=== PATIENT | male | born 1975 | race Caucasian/White ===

== ENCOUNTER 2020-05-17 09:41 | Emergency (ER) | payer OTHER, SELFPAY ==
--- NOTE | ~2020-05-17 | XR_ITS ---
EXAMINATION: XR ankle LT min 3V DATE: 05/17/2020 10:26 INDICATION: Left ankle pain TECHNIQUE: Anteroposterior, lateral, mortise, and additional oblique view of the ankle were obtained. COMPARISON: None. FINDINGS: There is mild ankle soft tissue swelling. No fracture, dislocation, or subluxation is ident ified. IMPRESSION: 1. Mild ankle soft tissue swelling without acute osseous abnormality. Reviewed, dictated and finalized at location A. E [facility]ISTORIAN
[2020-05-17 10:00] VITALS: BP 134/80; PULSE 81; RESP 18; TEMP 36.7; O2SAT 98
--- NOTE | 2020-05-17 10:11 | ED.GENADULT ---
HPI - General Adult General Chief complaint: Extremity Injury, Lower Stated complaint: Left ankle/foot injury Time Seen by Provider: 05/17/20 10:11 Source: patient Mode of arrival: ambulatory Limitations: no limitations History of Present Illness HPI narrative: 45-year-old male patient presents to the [facility] with complaints of left ankle pain. Patient states he stepped down off of a truck yesterday onto some uneven concrete and rolled his left ankle. Patient states he has been icing it using a ankle brace and taking ibuprofen for his pain. Denies any numbness or tingling to the toes. Related Data Home Medications Medication Instructions Recorded Confirmed albuterol sulfate 2 puff INHALATION QID PRN 05/17/20 05/17/20 Allergies Allergy/AdvReac Type Severity Reaction Status Date / Time No Known Allergies Allergy Verified 05/17/20 10:12 Review of Systems Review of Systems: Narrative: CONSTITUTIONAL: Denies fever, chills, or sweats. EYES: Denies visual changes, redness, or discharge. ENT: Denies rhinorrhea, congestion, sore throat, or otalgia. CARDIOVASCULAR: Denies chest pain, palpitations, or edema. RESPIRATORY: Denies cough or dyspnea. GASTROINTESTINAL: Denies abdominal pain, nausea, vomiting, or diarrhea. GENITOURINARY: Denies dysuria or hematuria. SKIN: Denies rash or itching. MUSCULOSKELETAL: Denies back pain, joint pain, or myalgia. Positive left ankle pain NEUROLOGIC: Denies headache, numbness, or weakness. PSYCHIATRIC: Denies anxiety or depression. [facility] Past Medical History Medical History (Updated 05/17/20 @ 10:37 by JEMMA Michelle) Asthma Surgical History Surgical History (Updated 05/17/20 @ 10:12 by JEMMA Michelle) H/O inguinal hernia repair Social History Social History (Updated 05/17/20 @ 10:12 by JEMMA Michelle) Smoking status: Current every day smoker Comments At the time of my signature I agree with nursing past medical history, surgical, social, and family history. There is no relevant family history pertinent to the presenting complaint. Exam Narrative: Exam Narrative: GENERAL: Well-appearing, well-nourished, and in no acute distress. HEAD: Normocephalic, atraumatic. EYES: PERRLA and EOMI. ENT: Nares clear, no rhinorrhea or epistaxis. Mucous membranes moist. NECK: Supple. No lymphadenopathy CHEST: Clear to auscultation. No respiratory distress. HEART: Regular rate and rhythm. No murmur heard. Normal peripheral pulses. ABDOMEN: Soft, nontender, nondistended, normal active bowel sounds. EXTREMITIES: Patient is able to bear weight and ambulate but has increased pain to the left ankle. The L ankle is without obvious asymmetry or deformity when compared to the R ankle. Patient can flex/but has pain with extend, no pain with invert/cl. No obvious surface trauma, ecchymosis. No body tenderness and soft tissue swelling over the lateral malleolus. Pain to the anterior talofibular ligament, no pain with posterior talofibular ligament, calcaneofibular ligament nontender and without swelling. No tenderness or deformity of the midfootor over the proximal fifth metatarsal. Good DP and posterior tibial pulses and sensation to light touch normal. Talar tilt test is negative for ligament laxity to valgus or vargus stress. Negative anterior draw. Peroneal nerve is intact with strong eversion and plantar flexion. SKIN: Warm, dry, no rash. NEURO: No focal deficits. Alert and oriented x3. Course Reevaluation(s) Reevaluation #1: Reevaluated patient after his x-ray had resulted. Notified him that the x-ray is negative for any acute fractures at this time. Discussed with him that this is most likely an ankle sprain and that he should continue using the ankle brace that he has been using along with icing it and elevating it and I will give him some naproxen to help with the pain. Patient verbalized understanding of this. A copy of the x-ray results were provided to the patient today.
== END 2020-05-17 10:40 | disposition home or self-care (01) ==
PROVIDERS: Emergency Provider Nurse Practitioner Family; PCP Internal Medicine
DX: S93.402A Sprain of unspecified ligament of left ankle, initial encounter (principal); X50.9XXA Other and unspecified overexertion or strenuous movements or postures, initial encounter; F17.200 Nicotine dependence, unspecified, uncomplicated; J45.909 Unspecified asthma, uncomplicated
CPT/HCPCS: 73610; 99203; G0463

== ENCOUNTER 2020-06-25 13:35 | Emergency (ER) | payer OTHER, SELFPAY ==
--- NOTE | ~2020-06-25 | XR_ITS ---
EXAMINATION: XR chest 2V EXAM DATE: 06/25/2020 14:35 INDICATION: slipped. Hit bumper of truck 06/23/20. Anterior chest. TECHNIQUE: Frontal and lateral projections of the chest obtained and reviewed. There is no prior laurie dy for comparison. FINDINGS: The lungs are clear. There are no pleural effusions. The cardiomediastinal silhouette is within normal limits. There is no pneumothorax suspected. The bones and soft tissues are unremarkab le. IMPRESSION: No acute cardiopulmonary findings. Reviewed, dictated and finalized at location B. [facility] [employer]
[2020-06-25 13:50] VITALS: BP 140/73; PULSE 73; RESP 18; TEMP 36.7; O2SAT 98
--- NOTE | 2020-06-25 14:01 | ED.GENADULT ---
HPI - General Adult General Chief complaint: Wound/Laceration Stated complaint: chest pain from fall Time Seen by Provider: 06/25/20 14:15 Source: patient and RN notes reviewed Mode of arrival: ambulatory Limitations: no limitations History of Present Illness HPI narrative: 45-year-old male presents with complaint of left upper chest pain status post fall for the past 2 days. Tomy reports standing on bumper of truck (which was wet) lost footing and fell forward hitting chest on bed of truck causing pain to chest. Increasing pain over the past 24 hours. Heat and Ibuprofen (3 doses) last on 06/24/20 with little relief. Denies difficulty breathing or cough. Denies hitting head, loss consciousness, seizure activity, dizziness, or syncopal episodes. No deformity. Exacerbating factors consist of taking a deep breath and certain movements. Relieving factor consist of resting. Denies fever or chills. No cardiac chest pain, wheezing, or shortness of breath. Denies abdominal pain, nausea, and vomiting. Tolerating intake well. Remains active. The patient reports he have not been diagnosed with COVID-19. The patient reports he is not waiting for the results of a COVID-19 lab test. The patient reports he do not have chills, weakness, or fatigue. The patient reports he do not have a new or worsening cough or shortness of breath. The patient reports he do not have any rhinorrhea, congestion, loss of taste or smell, sore throat, and diarrhea. Denies recent traveling. Denies concerns for COVID-19 or exposures been home with limited outdoor exposure except for essential household needs, work, and return home. At this time, patient is not suspected of having COVID-19. Some parts of this dictation were generated by voice recognition software and may contain typographical and/or grammatical inaccuracies. Related Data Home Medications Medication Instructions Recorded Confirmed albuterol sulfate 2 puff INHALATION QID PRN 05/17/20 06/25/20 Allergies Allergy/AdvReac Type Severity Reaction Status Date / Time No Known Allergies Allergy Verified 06/25/20 14:00 Review of Systems Review of Systems: Narrative: CONSTITUTIONAL: Denies fever, chills, sweats. EYES: Denies visual changes, redness, discharge. ENT: Denies rhinorrhea, congestion, sore throat, otalgia. CARDIOVASCULAR: Denies chest pain, palpitations, edema. RESPIRATORY: Denies dyspnea, wheezing, cough. GASTROINTESTINAL: Denies abdominal pain, nausea, vomiting, diarrhea. GENITOURINARY: Denies dysuria, hematuria, abnormal discharge. SKIN: Denies rash or itching. MUSCULOSKELETAL: Denies acute back pain, joint pain, or myalgia. Complains of acute left upper chest wall tenderness. NEUROLOGIC: Denies numbness or focal weakness. PSYCHIATRIC: Denies anxiety or depression. All systems reviewed & are unremarkable except as noted in HPI and below. [facility] Past Medical History Medical History (Updated 06/26/20 @ 00:00 by Nikko Fortune) Asthma Hydrocele Surgical History Surgical History (Updated 06/25/20 @ 14:25 by JEMMA Lugo) H/O inguinal hernia repair History of cholecystectomy Family History Family History (Updated 06/25/20 @ 14:28 by JEMMA Lugo) Father Diabetes mellitus Mother Cancer Rheumatoid arthritis Social History Social History (Updated 06/25/20 @ 14:29 by JEMMA Lugo) Smoking packs per day: 1.5 Smoking cigarettes per day: 30.0 Years smoked: 31 Smoking pack-years: 46.50 Smoking status: Current every day smoker Tobacco type: cigarettes Second hand tobacco smoke exposure: No Alcohol intake: former Substance use: never Living arrangements: with family Occupation/Education: occupation Gender identity (if verbalized by the patient): Female Sexual Orientation (if Verbalized by the Patient): Straight or Heterosexual Comments At time of signature, agree with nurse past medical, surgi
[2020-06-25 15:22] VITALS: BP 140/73; PULSE 73; RESP 18; TEMP 36.7; O2SAT 98
== END 2020-06-25 14:46 | disposition home or self-care (01) ==
PROVIDERS: Emergency Provider Nurse Practitioner Family; PCP Internal Medicine
DX: S20.212A Contusion of left front wall of thorax, initial encounter (principal); W01.198A Fall on same level from slipping, tripping and stumbling with subsequent striking against other object, initial encounter; F17.210 Nicotine dependence, cigarettes, uncomplicated; J45.909 Unspecified asthma, uncomplicated
CPT/HCPCS: 71046; 99213; G0463

== ENCOUNTER 2020-09-05 08:36 | Emergency (ER) | payer OTHER, SELFPAY ==
[2020-09-05 08:43] VITALS: BP 114/69; PULSE 68; RESP 16; TEMP 36.6; O2SAT 99
--- NOTE | 2020-09-05 09:13 | ED.SKABFB ---
HPI - Skin/Abscess/Foreign Bdy General Chief complaint: Skin/Abscess/Foreign Body Stated complaint: boil Time Seen by Provider: 09/05/20 09:14 Source: patient and RN notes reviewed Mode of arrival: ambulatory Limitations: no limitations History of Present Illness HPI narrative: 45-year-old male who presents to [facility] with 5 to 6-day history of boil to scrotum area. Patient has been 2 cm raised painful tissue area to scrotal area with noted pimple like lesion with total area of redness [id number]. Patient states that he has applied some boil cream but has not helped. Patient reports that he has had boils in area before but they usually will pop and drain. 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 MD complaint: abscess/boil Onset (ago): day(s) (5-6 days) Location: genitals Severity: severe Severity scale (1-10): 9 Quality: sharp Pain Consistency: constant Relieving factors: none Exacerbating factors: palpation Treatments prior to arrival: other (boil ointment) Related Data Home Medications Medication Instructions Recorded Confirmed albuterol sulfate 2 puff INHALATION QID PRN 05/17/20 09/05/20 Allergies Allergy/AdvReac Type Severity Reaction Status Date / Time No Known Allergies Allergy Verified 09/05/20 09:04 Review of Systems Review of Systems: Narrative: CONSTITUTIONAL: Denies fever, chills, or sweats. EYES: Denies visual changes, redness, or discharge. ENT: Denies rhinorrhea, congestion, sore throat, or otalgia. CARDIOVASCULAR: Denies chest pain, palpitations, or edema. RESPIRATORY: Denies cough or dyspnea. GASTROINTESTINAL: Denies abdominal pain, nausea, vomiting, or diarrhea. GENITOURINARY: Denies dysuria or hematuria. SKIN: Denies rash or itching.positive for abscess to scrotal area for the past 5 days that has increased in size and pain. MUSCULOSKELETAL: Denies back pain, joint pain, or myalgia. NEUROLOGIC: Denies headache, numbness, or weakness. PSYCHIATRIC: Denies anxiety or depression. All systems reviewed & are unremarkable except as noted in HPI and below PMFSH Past Medical History Medical History (Updated 09/06/20 @ 00:00 by Background Daemon) Asthma Hydrocele Surgical History Surgical History (Updated 06/25/20 @ 14:25 by JEMMA Lugo) H/O inguinal hernia repair History of cholecystectomy Family History Family History (Updated 06/25/20 @ 14:28 by JEMMA Lugo) Father Diabetes mellitus Mother Cancer Rheumatoid arthritis Social History Social History (Updated 09/05/20 @ 09:29 by Jesi Finley NP) Smoking packs per day: 1.5 Smoking cigarettes per day: 30.0 Years smoked: 31 Smoking pack-years: 46.50 Smoking status: Current every day smoker Tobacco type: cigarettes Second hand tobacco smoke exposure: No Alcohol intake: former Substance use: never Gender identity (if verbalized by the patient): Male Comments At time of signature, agree with nursing past medical, surgical, social and family history. There is no relevant family history pertinent to the presenting complaint Exam Narrative: Exam Narrative: GENERAL: Well-appearing, well-nourished, and in no acute distress. HEAD: Normocephalic, atraumatic. EYES: PERRLA and EOMI. ENT: Nares clear, no rhinorrhea or epistaxis. Mucous membranes moist. NECK: Supple.no lymphadenopathy CHEST: Clear to auscultation. No respiratory distress. HEART: Regular rate and rhythm. No murmur heard. Normal peripheral pulses. ABDOMEN: Soft, nontender, nondistended, normal active bowel sounds. EXTREMITIES: Normal range of motion. No edema. SKIN: Warm, dry, no rash. 2cm diameter raised painful red abscess type lesion with total redness to area [id number], center has pimple type lesion. NEURO: No focal deficits. Alert and oriented x3. Course Vital Signs Vital signs: Vital Signs Temperature 36.6 C 09/05/20 08:43 Pulse Rate 68 09/05/20 08:43 Respirat
== END 2020-09-05 09:50 | disposition home or self-care (01) ==
PROVIDERS: Emergency Provider Registered Nurse
DX: L02.215 Cutaneous abscess of perineum (principal); F17.210 Nicotine dependence, cigarettes, uncomplicated; J45.909 Unspecified asthma, uncomplicated
CPT/HCPCS: 10060; 99213; G0463